=== PATIENT | male | born 1955 | race Caucasian/White ===

== ENCOUNTER 2016-07-05 07:09 | Outpatient (CLI) | payer OTHER | END 2016-07-05 07:10 | disposition home or self-care (01) | DX: E11.9 Type 2 diabetes mellitus without complications (principal) ==

== ENCOUNTER 2016-07-22 08:33 | Outpatient (CLI) | payer OTHER | END 2016-07-22 08:34 | disposition home or self-care (01) | LOC: NS 08:33 | PROVIDERS: ATTEND Family Medicine | DX: Z71.3 Dietary counseling and surveillance (principal); E11.9 Type 2 diabetes mellitus without complications; Z68.32 Body mass index [BMI] 32.0-32.9, adult | CPT/HCPCS: 97802 ==

== ENCOUNTER 2017-07-21 08:00 | Outpatient (CLI) | payer OTHER ==
[2017-07-21 13:52] LABS: ALBUMIN 4.2 g/dL (3.2-5.5); ALBUMIN/GLOBULIN RATIO 1.6 (1.0-2.2); ALKALINE PHOSPHATASE 67 IU/L (42-121); ALT ALANINE AMINOTRANSFERASE 28 IU/L (10-60); AST ASPARTATE AMINOTRANSFERASE 24 IU/L (10-42); BILIRUBIN,TOTAL 1.5 mg/dL (0.2-1.0); BUN - BLOOD UREA NITROGEN 17 mg/dL (6-20); CALCIUM 8.7 mg/dL (8.5-10.3); CARBON DIOXIDE - CO2 25 mmol/L (21-32); CHLORIDE 104 mmol/L (101-111); CHOLESTEROL 145 mg/dL; CREATININE 0.8 mg/dL (0.6-1.2); GFR - MDRD 98 (>89); GLUCOSE 149 mg/dL (70-100); HDL CHOLESTEROL 36 mg/dL; LDL CHOLESTEROL,CALCULATED 73 mg/dL; SODIUM 136 mmol/L (135-145); TOTAL PROTEIN 6.9 g/dL (6.7-8.2); URIC ACID 5.1 mg/dL (2.6-7.2); VLDL CHOLESTEROL 36 mg/dL
[2017-07-21 14:23] LABS: HB2 TOTAL 17.2 g/dL; HEMOGLOBIN A1C 0.66 g/dL; HEMOGLOBIN A1C % 5.7 % (4.6-6.2)
== END 2017-07-21 08:01 | disposition home or self-care (01) ==
LOC: LAB.WCP 08:00
PROVIDERS: ATTEND Family Medicine
DX: E78.5 Hyperlipidemia, unspecified (principal); E11.9 Type 2 diabetes mellitus without complications; Z12.5 Encounter for screening for malignant neoplasm of prostate; M10.9 Gout, unspecified
CPT/HCPCS: 36415; 80053; 80061; 82043; 83036; 83721; 84153; 84550

== ENCOUNTER 2017-08-04 06:54 | Outpatient (CLI) | payer OTHER ==
[2017-08-04] MEDS ORDERED: IOPAMIDOL-300 100 ML VIAL ONE (07:20)
[2017-08-04] MEDS ORDERED: IOPAMIDOL-300 100 ML VIAL IVP ONE (07:36)
--- NOTE | 2017-08-04 14:42 | CT Report ---
EXAM: CT LUMBAR SPINE WITH CONTRAST EXAM DATE: 08/04/2017 07:36 AM. CLINICAL HISTORY: Lumbar radiculopathy. Low back pain. Prior lumbar spine surgery. COMPARISONS: No prior contrast-enhanced lumbar spine CT. Correlation is made with lumbar spine CT per formed simultaneously with this lumbar spine CT with contrast. TECHNIQUE: Thin-section axial images were acquired of the lumbar spine from T12 to S1 after administr ation of intravenous contrast. Post-processing: Coronal and sagittal reformats. Other: None. IV contr ast: 100 mL Isovue-300. In accordance with CT protocol optimization, one or more of the following dose reduction techniques w ere utilized for this exam: automated exposure control, adjustment of mA and/or KV based on patient s ize, or use of iterative reconstructive technique. FINDINGS: No evidence for abnormal postcontrast enhancement of the lumbar spine. No evidence for peripherally e nhancing abscess-like fluid collection or focal solid space occupying mass. Note that soft tissue trey luation even with contrast adjacent to and within the lumbar spinal column is inherently limited. No other evidence for unexpected paraspinal soft tissue enhancement. The remaining details of lumbar spine CT findings can be seen in the detailed report of the lumbar sp ine performed with contrast which was scanned simultaneously with this contrast-enhanced study. IMPRESSION: No evidence for abnormal or an expected postcontrast enhancement. If there is additional concern for enhancing lumbar spine pathology, MRI of the lumbar spine without and with contrast is ge nerally considered to be preferred to CT assuming the patient is an MRI candidate. [facility] Referring Provider Line: [phone] SITE ID: [id number]
--- NOTE | 2017-08-04 14:42 | CT Report ---
EXAM: CT LUMBAR SPINE WITHOUT CONTRAST EXAM DATE: 08/04/2017 07:24 AM. CLINICAL HISTORY: Lumbar radiculopathy. History of lumbar spine surgery. COMPARISONS: No prior CT. Correlation is made with MRI of the lumbar spine from 08/31/2015. TECHNIQUE: Thin-section axial images were acquired of the lumbar spine from T12 to S1 without contras t. Post-processing: Coronal and sagittal reformats. Other: None. In accordance with CT protocol optimization, one or more of the following dose reduction techniques w ere utilized for this exam: automated exposure control, adjustment of mA and/or KV based on patient s ize, or use of iterative reconstructive technique. FINDINGS: Alignment: Approximately 15 degrees of levoscoliosis, similar to prior. Sagittal images show lumbar l ordosis straightening and upper lumbar lordosis reversal. Bones: Five ymq-rsn-afnhptw lumbar vertebral bodies are present. No acute fracture. Diffuse degenerat chang marginal spurring and chronic hypertrophic degenerative changes. Ferc-cr-ttnesvzw bilateral SI elsa int DJD with anterior marginal spurring. Coronal images show bulky osteophytic far right lateral spurring versus syndesmophyte formation acros s the L3-L4 disk space which also shows solid bony fusion laterally on the right. Disk Levels/Facets: T12-L1: Mild chronic degenerative changes. No evidence for progressive or high-grade stenosis. L1-L2: Moderately prominent degenerative disk disease. Anterior and far left lateral degenerative mar ginal spurring. Diffusely narrowed disk space. Chronic L2 superior endplate Schmorl's node. Mild righ tward lateral degenerative subluxation of L1 on L2. Mild facet arthropathy. Broad-based disk bulge. M inimal central stenosis. Mild bilateral foraminal stenosis right greater than left. L2-L3: Moderate to severe degenerative disk disease. Marked disk space narrowing with vacuum disk. De generative Schmorl's nodes on both sides of the disk space. Mild marginal spurring. Broad-based disk bulge. Mild facet arthropathy. No significant foraminal stenosis. Mild grossly stable central stenosi s. L3-L4: Chronic advanced hypertrophic degenerative changes. Previous left hemilaminotomy decompression . The osseous contours of the central canal are grossly maintained. Stable-appearing bony stenosis of the right lateral recess and both neural foramina, right greater than left. The L3 and L4 vertebrae appear fused at the level of the right lateral disk space and both facet joints also show bony fusion . L4-L5: Severe degenerative disk disease. Ctyq-op-caugsgbr facet arthropathy. Vacuum disk. Marginal sp urring and diskogenic sclerosis. Again seen are findings of a chronic broad-based posterior degenerat chang disk/osteophyte complex that is more conspicuous to the right of midline. The central canal remai ns patent. Previous dorsal laminectomy decompression. There is residual deformity and stenosis of bot h lateral recesses, right worse than left, from a combination of hypertrophic degenerative changes of the facet joints as well as posterior degenerative marginal spurring with disk protrusion, more prom inent to the right of midline. Again seen are findings of prominent foraminal stenosis, severe on the left and at least moderate on the right. L5-S1: There are now findings of dorsal laminectomy decompression, diskectomy with interbody fusion h ardware placement, and posterior unilateral left side ashu and screw fusion procedure. Minimal lucency is seen around the left S1 unilateral pedicle screw which may be secondary to minimal hardware loose minoo but without evidence for screw migration. No bony disk space fusion. The interbody fusion hardwa re has settled into the adjacent endplates. Small vacuum phenomenon at the far right lateral margin o f the disk space between lateral osteophytes and also in the left lateral disk space. The osseous con tours of the central canal are grossly maintained, but there is persistent prominent-appearing right lateral recess stenosis where there is impingement from prominent right-side facet joint hypertrophic degenerative changes and spurring medially. The left lateral recess appears patent. The left neural foramen is now patent and appears to have been surgically decompressed. There is moderate to severe d egenerative foraminal stenosis on the right from facet hypertrophy, marginal spurring and intraforami nal extension of broad-based disk bulge. Musculature: Rbgf-gz-qxpngzvl diffuse fatty atrophy. Expected fat plane disruption from prior surgery . Other: None. IMPRESSION: 1. No significant change of alignment. Mild lumbar levoscoliosis is present as well as lordosis strai ghtening and mild upper lumbar lordosis reversal. 2. Interval dorsal decompressions and fusions at the L5-S1 level. The intervertebral disk space is no t fused. Equivocal findings of minimal left S1 screw loosening. There is persistent stenosis at L5-S1 of the right lateral recess and neural foramen. 3. Chronic advanced multilevel degenerative lumbar spinal spondylitic changes with multizone multilev el stenosis, as enumerated in detail level by level above. 4. Interval probable degenerative autofusion of the L3-L4 vertebrae. [facility] Referring Provider Line: [phone] SITE ID: [id number]
== END 2017-08-04 06:55 | disposition home or self-care (01) ==
LOC: DI 06:54
PROVIDERS: ATTEND Family Medicine
DX: M51.16 Intervertebral disc disorders with radiculopathy, lumbar region (principal); M41.86 Other forms of scoliosis, lumbar region; Z98.1 Arthrodesis status
CPT/HCPCS: 72131; 72132; Q9967

== ENCOUNTER 2018-04-13 08:00 | Outpatient (CLI) | payer OTHER ==
[2018-04-13 19:46] LABS: ALBUMIN 4.1 g/dL (3.2-5.5); ALBUMIN/GLOBULIN RATIO 1.4 (1.0-2.2); BILIRUBIN,TOTAL 0.7 mg/dL (0.2-1.0); CALCIUM 9.1 mg/dL (8.5-10.3); CREATININE 0.8 mg/dL (0.6-1.2); TOTAL PROTEIN 7.1 g/dL (6.7-8.2)
[2018-04-13 20:22] LABS: HB2 TOTAL 16.2 g/dL; HEMOGLOBIN A1C 0.69 g/dL
== END 2018-04-13 23:59 | disposition home or self-care (01) ==
LOC: LAB.WCP 08:00
PROVIDERS: ATTEND Family Medicine
DX: E78.5 Hyperlipidemia, unspecified (principal); E11.9 Type 2 diabetes mellitus without complications; M54.16 Radiculopathy, lumbar region; M10.9 Gout, unspecified
CPT/HCPCS: 36415; 80053; 83036

== ENCOUNTER 2018-05-03 07:29 | Outpatient (CLI) | payer OTHER ==
[2018-05-03] MEDS ORDERED: GADOBUTROL 10 MMOL/10 ML VIAL ONE (07:41)
[2018-05-03] MEDS ORDERED: GADOBUTROL 10 MMOL/10 ML VIAL IVP ONE (08:20)
--- NOTE | 2018-05-03 16:33 | MRI Report ---
Reason: SPINAL STENOSIS,LUMBAR REGION WITH NEUROGENIC ELISABET Procedure Date: 05/03/2018 Accession Number: [id number] / [id number] Procedure: MRI - Lumbar Spine W/WO CPT Code: FULL RESULT: MRI LUMBAR SPINE WITHOUT AND WITH CONTRAST INDICATION: 62-year-old male. Low back pain and right leg pain and weakness. TECHNIQUE: 1. Sagittal STIR, T1 and T2. 2. Axial T1 and T2. 3. 10 cc IV Gadavist. T1 axial and fat saturated T1 sagittal. COMPARISON: 1. Lumbar spine CT 08/04/2017 and 2. Lumbar spine MRI 08/31/2015. FINDINGS: The previous CT study has been reviewed confirming the presence of 5 tlx-gdj-onvcqsd lumbar type vertebrae. Postsurgical changes are again demonstrated at L5-S1. There is evidence of previous diskectomy and interbody fusion surgery. An interbody fusion device is again demonstrated positioned within the left side of the disk space. There is no obvious trabecular bone traversing the disk space at this time to confirm the presence of solid interbody fusion. Also again noted are changes of previous unilateral instrumented posterior fusion at L5-S1 with left-sided L5 and S1 pedicle screws and an interconnecting ashu. There is some magnetic susceptibility artifact from the posterior fusion hardware; however, this does not appear to be causing significant image degradation. Again demonstrated is a levoconvex scoliosis with apex at the L3-L4 disk level. With the patient lying supine, the Lynch angle appears to measure 20 degrees. In the sagittal plane, again demonstrated is straightening of the lumbar alignment with very minimal lumbar lordosis. In addition, again demonstrated is mild retrolisthesis of L2 on L3 and L4 on L5 measuring roughly 3-4 mm at both levels. Again demonstrated is minimal anterior wedging of the T11, T12, L1 and L2 vertebral bodies, unchanged. The vertebral body heights are otherwise preserved. No evidence of recent lumbar spine compression fracture. Degenerative changes are demonstrated in the disks at all levels. There is a similar pattern of multilevel degenerative disk space narrowing that is most pronounced and relatively severe at L3-L4 (laterally to the right) and at L4-L5. Type II reactive marrow changes are identified in the vertebral endplates at L3-L4, L4-L5 and L5-S1. Numerous, smaller, T1/T2 hyperintense foci are demonstrated, scattered throughout the vertebrae consistent with inhomogeneous fatty marrow replacement and/or multiple intraosseous hemangiomata. The marrow signal intensity is otherwise unremarkable. The conus terminates in appropriate fashion above the L1-L2 disk level. There is no abnormal thickening or lipomatous change of the filum. Axial images: T12-L1: No focal disk herniation. No spinal stenosis. Mild left foraminal stenosis. L1-L2: Minor, circumferential disk bulge. Superimposed small extrusion posterior laterally on the right, contiguous with the small right intraforaminal/extraforaminal extrusion, essentially unchanged. Small left intraforaminal/extraforaminal protrusion or extrusion, stable. There is mass effect on the ventral aspect of the thecal sac without significant-appearing spinal stenosis. There is mild to moderate right foraminal stenosis. No left foraminal narrowing. L2-L3: Circumferential disk bulge. Small intraforaminal/extraforaminal protrusions bilaterally, unchanged. No significant-appearing spinal stenosis. Mild right-sided foraminal narrowing. L3-L4: There is evidence of previous left hemilaminotomy. The surgery has occurred since the MRI study of 08/31/2015. The left ligamentum flavum and the intralaminar fat pad have been surgically removed. Again demonstrated is a broad-based, right intraforaminal/extraforaminal extrusion with associated osteophyte, unchanged. Laterally on the right, the prominent osteophyte is bridging the L3-L4 level. There is a smaller left intraforaminal/extraforaminal extrusion, essentially unchanged. There continues to be some right subarticular zone narrowing. No loyd impingement of traversing right L4 nerve root is demonstrated. No central zone or left subarticular zone stenosis. There is mild to moderate left and moderate right foraminal stenosis, unchanged. L4-L5: Postsurgical changes are again demonstrated with evidence of previous bilateral laminectomy. Retrolisthesis. Broad-based left intraforaminal/extraforaminal extrusion, essentially unchanged. There has been interval development of a small right paracentral extrusion with caudal migration of extruded disk material in the ventral epidural space along the dorsal margin of the upper L5 vertebral body for roughly 7.6 mm in the craniocaudad direction. This inferiorly migrated disk fragment measures about 6 mm in maximal AP thickness. There is a broad-based right intraforaminal/extraforaminal extrusion with minor associated intraforaminal osteophyte, stable. Degenerative facet arthrosis with at least mild bony hypertrophy. There are bilateral subarticular zone stenoses showing definite interval progression on the right. There certainly could be compromise of traversing L5 nerve roots. Again demonstrated is very severe, left foraminal stenosis, unchanged with almost certain compromise of exiting left L4 nerve root. There is moderate right foraminal stenosis, stable. L5-S1: There is deformity of the right lamina suggesting interval right hemilaminotomy. Retrolisthesis. Small right posterior lateral and intraforaminal/extraforaminal extrusion and mild interval increase in size. Previously demonstrated small left-sided extrusion is no longer seen. There is persistent right subarticular zone narrowing, primarily from facet hypertrophy. No definite compromise of traversing right S1 nerve root. No central zone or left subarticular zone narrowing. There is at least moderate foraminal narrowing bilaterally. Previously demonstrated cystic mass in the left neural foramen is no longer seen, and no obvious compromise of exiting left L5 nerve root is demonstrated at this time. However, there may be impingement of the right L5 nerve root in the lateral aspect of the neural foramen (see image 16 of series 301). Intraforaminal extrusion contacts the nerve root, and perineural fat surrounding the nerve root is partially effaced. On postcontrast sequences, no significant enhancing epidural granulation tissue is identified at L3-L4 or L4-L5. There is enhancing granulation tissue in the left epidural space at L5-S1 surrounding the dural sleeve for traversing left S1 nerve root. However, no significant distortion or retraction of the nerve root sleeve is demonstrated. No pathologic enhancement is demonstrated in the lumbar spine. No obvious abnormal clumping of intradural nerve roots is demonstrated to confirm the presence of intradural adhesive arachnoiditis. IMPRESSION: 1. Postsurgical changes are demonstrated at L5-S1, new when compared to the MRI study of 08/31/2015 but stable when compared to lumbar spine CT 08/04/2017. There is evidence of prior L5-S1 diskectomy and interbody fusion surgery. An interbody fusion device is demonstrated in place. No obvious trabecular bone is seen traversing the disk space at this time to confirm solid interbody fusion. Also demonstrated are changes of previous lateral left-sided instrumented posterior fusion at L5-S1 (see above). 2. There is evidence of interval left hemilaminotomy at L3-L4 and interval right hemilaminotomy at L5-S1. Remote changes of previous bilateral laminectomy again noted at L4-L5. 3. Degenerative disk and facet changes are seen throughout the lumbar spine as documented in detail above. There are associated central, subarticular, and foraminal zone stenoses. The most significant stenoses are as follows: A. At L4-L5 there is a new inferiorly migrated right paracentral extrusion. There continues to be significant subarticular zone narrowing bilaterally. There has been interval worsening of pre-existing right subarticular zone stenosis. There certainly could be compromise of traversing L5 nerve roots at L4-L5. Recommend clinical correlation for possible right L5 radiculopathy. B. Again demonstrated is very severe left foraminal stenosis at L4-L5 with almost certain compromise of exiting left L4 nerve root, unchanged when compared to the MRI study from 08/2015. C. There is persistent right subarticular zone stenosis at L5-S1; however, no definite compromise of traversing right S1 nerve root is demonstrated. D. There is potentially significant right foraminal stenosis at L5-S1. There may be impingement of the right L5 nerve root in the lateral aspect of the foramen.
== END 2018-05-03 07:30 | disposition home or self-care (01) ==
LOC: DI 07:29
PROVIDERS: ATTEND Orthopaedic Surgery
DX: M48.062 Spinal stenosis, lumbar region with neurogenic claudication (principal); M51.36 Other intervertebral disc degeneration, lumbar region; M47.9 Spondylosis, unspecified; M51.26 Other intervertebral disc displacement, lumbar region; Z98.1 Arthrodesis status; M48.07 Spinal stenosis, lumbosacral region
CPT/HCPCS: 72158; A9585

== ENCOUNTER 2018-09-14 09:33 | Outpatient (CLI) | payer OTHER ==
[2018-09-14 12:52] LABS: BASOPHILS % (AUTO) 0.6 %; EOSINOPHILS # (AUTO) 0.2 10^3/uL (0.0-0.7); EOSINOPHILS % (AUTO) 2.6 %; LYMPHOCYTES # (AUTO) 1.5 10^3/uL (1.5-3.5); MEAN CORPUSCULAR HEMOGLOBIN 32.4 pg (27.0-31.0); MEAN CORPUSCULAR HGB CONC 34.9 g/dL (32.0-36.0); MEAN CORPUSCULAR VOLUME 92.9 fL (80.0-94.0); MEAN PLATELET VOLUME 11.2 fL (7.4-11.4); MONOCYTES # (AUTO) 0.5 10^3/uL (0.0-1.0); MONOCYTES % (AUTO) 7.7 %; NEUTROPHILS % (AUTO) 64.3 %; PLT - PLATELET COUNT 206 10^3/uL (130-450); RED BLOOD COUNT 4.63 10^6/uL (4.70-6.10); RED CELL DISTRIBUTION WIDTH 13.4 % (12.0-15.0); WHITE BLOOD COUNT 6.2 x10^3/uL (4.8-10.8)
[2018-09-14 13:16] LABS: ALBUMIN 4.3 g/dL (3.2-5.5); ALBUMIN/GLOBULIN RATIO 1.4 (1.0-2.2); ALKALINE PHOSPHATASE 82 IU/L (42-121); ALT ALANINE AMINOTRANSFERASE 35 IU/L (10-60); AST ASPARTATE AMINOTRANSFERASE 24 IU/L (10-42); BILIRUBIN,TOTAL 1.3 mg/dL (0.2-1.0); BUN - BLOOD UREA NITROGEN 16 mg/dL (6-20); CALCIUM 9.1 mg/dL (8.5-10.3); CARBON DIOXIDE - CO2 24 mmol/L (21-32); CHLORIDE 105 mmol/L (101-111); CHOL/HDL RATIO 4.1 (<5.0); CHOLESTEROL 160 mg/dL; CREATININE 0.8 mg/dL (0.6-1.2); GFR - MDRD 97 (>89); GLUCOSE 158 mg/dL (70-100); HDL CHOLESTEROL 39 mg/dL; LDL CHOLESTEROL,CALCULATED 96 mg/dL; LDL/HDL RATIO 2.5 (<3.6); SODIUM 138 mmol/L (135-145); TOTAL PROTEIN 7.3 g/dL (6.7-8.2); VLDL CHOLESTEROL 25 mg/dL
[2018-09-14 13:17] LABS: CREATININE,URINE 104.4 mg/dL; MICROALBUM/CREATININE RATIO,UR 13.4 ug/mg (<30.0); MICROALBUMIN,URINE 1.4 mg/dL (0-300.0)
[2018-09-14 13:18] LABS: HB2 TOTAL 17.1 g/dL; HEMOGLOBIN A1C 0.87 g/dL; HEMOGLOBIN A1C % 6.8 % (4.6-6.2)
== END 2018-09-14 09:34 | disposition home or self-care (01) ==
LOC: LAB.WCP 09:33
PROVIDERS: ATTEND Family Medicine
DX: I10 Essential (primary) hypertension (principal); E78.5 Hyperlipidemia, unspecified; E11.9 Type 2 diabetes mellitus without complications; Z12.5 Encounter for screening for malignant neoplasm of prostate
CPT/HCPCS: 36415; 80053; 80061; 82043; 82570; 83036; 83721; 84153; 84443; 85025

== ENCOUNTER 2019-08-21 08:00 | Outpatient (CLI) | payer BC, OTHER ==
[2019-08-21 18:33] LABS: BASOPHILS # (AUTO) 0.1 10^3/uL (0.0-0.1); BASOPHILS % (AUTO) 0.7 %; EOSINOPHILS # (AUTO) 0.1 10^3/uL (0.0-0.7); EOSINOPHILS % (AUTO) 1.8 %; HGB - HEMOGLOBIN 15.6 g/dL (14.0-18.0); LYMPHOCYTES # (AUTO) 2.1 10^3/uL (1.5-3.5); LYMPHOCYTES % (AUTO) 28.7 %; MEAN CORPUSCULAR HEMOGLOBIN 32.6 pg (27.0-31.0); MEAN CORPUSCULAR HGB CONC 35.8 g/dL (32.0-36.0); MEAN PLATELET VOLUME 11.3 fL (7.4-11.4); MONOCYTES # (AUTO) 0.6 10^3/uL (0.0-1.0); MONOCYTES % (AUTO) 7.6 %; NEUTROPHILS # (AUTO) 4.5 10^3/uL (1.5-6.6); NEUTROPHILS % (AUTO) 60.5 %; PLT - PLATELET COUNT 211 10^3/uL (130-450); RED BLOOD COUNT 4.79 10^6/uL (4.70-6.10); RED CELL DISTRIBUTION WIDTH 12.8 % (12.0-15.0); WHITE BLOOD COUNT 7.4 x10^3/uL (4.8-10.8)
[2019-08-21 18:45] LABS: ALBUMIN 4.3 g/dL (3.2-5.5); ALBUMIN/GLOBULIN RATIO 1.5 (1.0-2.2); ALKALINE PHOSPHATASE 119 IU/L (42-121); ALT ALANINE AMINOTRANSFERASE 18 IU/L (10-60); AST ASPARTATE AMINOTRANSFERASE 14 IU/L (10-42); BILIRUBIN,TOTAL 1.7 mg/dL (0.2-1.0); BUN - BLOOD UREA NITROGEN 12 mg/dL (6-20); CALCIUM 9.3 mg/dL (8.5-10.3); CARBON DIOXIDE - CO2 29 mmol/L (21-32); CHLORIDE 96 mmol/L (101-111); CHOL/HDL RATIO 4.4 (<5.0); CHOLESTEROL 175 mg/dL; CREATININE 0.7 mg/dL (0.6-1.2); GLUCOSE 278 mg/dL (70-100); HDL CHOLESTEROL 40 mg/dL; LDL CHOLESTEROL,CALCULATED 104 mg/dL; LDL/HDL RATIO 2.6 (<3.6); SODIUM 133 mmol/L (135-145); TOTAL PROTEIN 7.2 g/dL (6.7-8.2); VLDL CHOLESTEROL 31 mg/dL
[2019-08-21 18:48] LABS: CREATININE,URINE 80.7 mg/dL; MICROALBUM/CREATININE RATIO,UR 9.9 ug/mg (<30.0); MICROALBUMIN,URINE 0.8 mg/dL (0-300.0)
[2019-08-21 18:59] LABS: HB2 TOTAL 16.3 g/dL; HEMOGLOBIN A1C 1.8 g/dL; HEMOGLOBIN A1C % 12.3 % (4.6-6.2)
== END 2019-08-21 23:59 | disposition home or self-care (01) ==
LOC: LAB.WCP 08:00
PROVIDERS: ATTEND Family Medicine
DX: Z00.00 Encounter for general adult medical examination without abnormal findings (principal); E78.5 Hyperlipidemia, unspecified; N40.0 Benign prostatic hyperplasia without lower urinary tract symptoms
CPT/HCPCS: 36415; 80053; 80061; 82043; 82570; 83036; 83721; 84153; 84443; 85025

== ENCOUNTER → 2019-12-06 | Outpatient (CLI) | payer BC ==
[2019-12-06 19:00] LABS: CALCIUM 9.2 mg/dL (8.5-10.3); CREATININE 0.9 mg/dL (0.6-1.2)
[2019-12-06 21:10] LABS: HEMOGLOBIN A1c% 5.7 % (4.27-6.07)
== END ==
LOC: LAB.WCP 08:00
PROVIDERS: ATTEND Nurse Practitioner
DX: E11.9 Type 2 diabetes mellitus without complications (principal)
CPT/HCPCS: 36415; 80048; 83036

== ENCOUNTER 2020-02-19 08:00 | Outpatient (CLI) | payer BC ==
[2020-02-19 13:19] LABS: CALCIUM 9.4 mg/dL (8.5-10.3); CREATININE 0.8 mg/dL (0.6-1.2)
[2020-02-19 14:04] LABS: HEMOGLOBIN A1c% 5.5 % (4.27-6.07)
== END 2020-02-19 08:01 | disposition home or self-care (01) ==
LOC: LAB.WCP 08:00
PROVIDERS: ATTEND Nurse Practitioner
DX: E11.9 Type 2 diabetes mellitus without complications (principal)
CPT/HCPCS: 36415; 80048; 83036

== ENCOUNTER 2020-08-19 08:00 | Outpatient (CLI) | payer BC ==
[2020-08-19 12:21] LABS: CALCIUM 9.2 mg/dL (8.5-10.3); CREATININE 0.8 mg/dL (0.6-1.2); POTASSIUM 3.8 mmol/L (3.5-5.0)
[2020-08-19 12:35] LABS: ESTIMATED AVERAGE GLUCOSE 128 mg/dL (70-100); HEMOGLOBIN A1c% 6.1 % (4.27-6.07)
== END 2020-08-19 23:59 | disposition home or self-care (01) ==
LOC: LAB.WCP 08:00
PROVIDERS: ATTEND Family Medicine
DX: E11.9 Type 2 diabetes mellitus without complications (principal)
CPT/HCPCS: 36415; 80048; 83036

== ENCOUNTER 2020-09-24 08:05 | Outpatient (CLI) | payer BC ==
--- NOTE | 2020-09-24 11:37 | XRAY Report ---
PROCEDURE: Pelvis 3 View INDICATIONS: ARTHRITIS, HIPS BILATERAL TECHNIQUE: AP view of the pelvis and frog-leg lateral views of each hip. COMPARISON: Bilateral hip radiographs 05/01/2015 FINDINGS: There is no acute fracture or dislocation. Mild degenerative spurring is seen at the lateral acetabul ar angles bilaterally. Mild enthesopathy is seen throughout the pelvis. Post surgical changes are see n in the included lower lumbar spine with pedicle screws and interbody rods on the left at the L5-S1 level and interbody spacer present. Degenerative changes are noted in the lumbar spine. Bowel gas pattern within pelvis is within normal limits. No suspicious soft tissue calcification. IMPRESSION: No acute osseous abnormality. Symmetric mild to moderate osteoarthrosis of the hips bilaterally. Reviewed by: Jeff Palmer MD on 09/24/2020 11:35 AM PDT Approved by: Jeff Palmer MD on 09/24/2020 11:35 AM PDT Station ID: [id number]
== END 2020-09-24 08:06 | disposition home or self-care (01) ==
LOC: DI.N 08:05
PROVIDERS: ATTEND Family Medicine
DX: M16.0 Bilateral primary osteoarthritis of hip (principal)

== ENCOUNTER 2021-05-13 07:09 | Outpatient (CLI) | payer OTHER ==
[2021-05-13 08:41] LABS: BASOPHILS # (AUTO) 0.1 10^3/uL (0.0-0.1); BASOPHILS % (AUTO) 0.9 %; EOSINOPHILS # (AUTO) 0.2 10^3/uL (0.0-0.7); EOSINOPHILS % (AUTO) 2.8 %; HCT - HEMATOCRIT 44.5 % (42.0-52.0); HGB - HEMOGLOBIN 15.5 g/dL (14.0-18.0); LYMPHOCYTES # (AUTO) 1.5 10^3/uL (1.5-3.5); LYMPHOCYTES % (AUTO) 21.7 %; MEAN CORPUSCULAR HGB CONC 34.8 g/dL (32.0-36.0); MEAN CORPUSCULAR VOLUME 91.9 fL (80.0-94.0); MEAN PLATELET VOLUME 10.3 fL (7.4-11.4); MONOCYTES # (AUTO) 0.6 10^3/uL (0.0-1.0); MONOCYTES % (AUTO) 9.5 %; NEUTROPHILS # (AUTO) 4.4 10^3/uL (1.5-6.6); NEUTROPHILS % (AUTO) 64.5 %; PLT - PLATELET COUNT 191 10^3/uL (130-450); RED BLOOD COUNT 4.84 10^6/uL (4.70-6.10); RED CELL DISTRIBUTION WIDTH 12.7 % (12.0-15.0); WHITE BLOOD COUNT 6.8 x10^3/uL (4.8-10.8)
[2021-05-13 08:52] LABS: MICROALBUM/CREATININE RATIO,UR 3.9 ug/mg (<30.0); MICROALBUMIN,URINE 0.5 mg/dL (0-300.0)
[2021-05-13 08:54] LABS: ALBUMIN 4.4 g/dL (3.2-5.5); ALBUMIN/GLOBULIN RATIO 1.5 (1.0-2.2); ALKALINE PHOSPHATASE 83 IU/L (42-121); ALT ALANINE AMINOTRANSFERASE 24 IU/L (10-60); AST ASPARTATE AMINOTRANSFERASE 17 IU/L (10-42); BILIRUBIN,TOTAL 1.1 mg/dL (0.2-1.0); BUN - BLOOD UREA NITROGEN 15 mg/dL (6-20); CALCIUM 9.3 mg/dL (8.5-10.3); CARBON DIOXIDE - CO2 28 mmol/L (21-32); CHLORIDE 102 mmol/L (101-111); CHOL/HDL RATIO 4.1 (<5.0); CHOLESTEROL 175 mg/dL; CREATININE 0.8 mg/dL (0.6-1.2); GFR - MDRD 97 (>89); GLUCOSE 167 mg/dL (70-100); HDL CHOLESTEROL 43 mg/dL; LDL CHOLESTEROL,CALCULATED 110 mg/dL; LDL/HDL RATIO 2.6 (<3.6); POTASSIUM 4.5 mmol/L (3.5-5.0); SODIUM 137 mmol/L (135-145); TOTAL PROTEIN 7.3 g/dL (6.7-8.2); TRIGLYCERIDES 111 mg/dL; VLDL CHOLESTEROL 22 mg/dL
[2021-05-13 13:03] LABS: ESTIMATED AVERAGE GLUCOSE 140 mg/dL (70-100); HEMOGLOBIN A1c% 6.5 % (4.27-6.07)
== END 2021-05-13 07:10 | disposition home or self-care (01) ==
LOC: LAB 07:09
PROVIDERS: ATTEND Family Medicine
DX: E11.9 Type 2 diabetes mellitus without complications (principal); Z12.5 Encounter for screening for malignant neoplasm of prostate
CPT/HCPCS: 36415; 80053; 80061; 82043; 82570; 83036; 83721; 84153; 85025

== ENCOUNTER 2021-08-05 06:47 | Outpatient (CLI) | payer OTHER ==
[2021-08-05 07:07] LABS: CREATININE 0.9 mg/dL (0.6-1.2)
== END 2021-08-05 06:48 | disposition home or self-care (01) ==
LOC: LAB 06:47
PROVIDERS: ATTEND Orthopaedic Surgery Foot and Ankle Surgery
DX: M54.16 Radiculopathy, lumbar region (principal)
CPT/HCPCS: 36415; 82565; 84520

== ENCOUNTER 2023-04-03 11:21 | Emergency (ER) | payer MEDICARE, OTHER ==
--- NOTE | 2023-04-03 12:04 | ED Physician Documentation ---
PD HPI UPPER EXT INJURY - Stated complaint Stated Complaint: RT FINGER LAC - Chief complaint Chief Complaint: Laceration - History obtained from History obtained from: Patient - History of Present Illness Location: Right, Finger (3rd) Pain level max: 3 Pain level now: 3 Associated symptoms: No: Weakness, Numbness, Tingling, Swelling - Additonal information Additional information: Patient is a 67-year-old male who presents to the emergency department for laceration to the tip of the right third finger. This was cut on a fan when he was opening of fluid on a jeep. Tetanus is up-to-date. Patient is right- handed. He is diabetic. Better with pressure, nothing makes it worse. PD PAST MEDICAL HISTORY - Past Medical History Past Medical History: Yes Cardiovascular: Hypertension, High cholesterol Respiratory: None Endocrine/Autoimmune: Type 2 diabetes GI: None : None HEENT: None Psych: None Musculoskeletal: Gout, Other Derm: None - Past Surgical History Past Surgical History: Yes General: Colonoscopy Ortho: Spine surgery - Present Medications Home Medications: Ambulatory Orders Medication Instructions Recorded Confirmed allopurinoL [Allopurinol] 300 mg PO DAILY 07/08/13 04/03/23 Insulin Glargine,Hum.rec.anlog 22 unit SUBQ DAILY 10/29/19 04/03/23 [Basaglar Kwikpen U-100] Metformin HCl [Metformin HCl ER] 1,000 mg PO DAILY 10/29/19 04/03/23 Cyclobenzaprine [Flexeril] 10 mg PO TID PRN 10/30/19 04/03/23 cephALEXin [Keflex] 500 mg PO Q6H #28 cap 04/03/23 - Allergies Allergies/Adverse Reactions: Allergies Allergy/AdvReac Type Severity Reaction Status Date / Time No Known Drug Allergies Allergy Verified 04/03/23 11:27 - Social History Does the pt smoke?: No Smoking Status: Never smoker Does the pt drink ETOH?: No Does the pt have substance abuse?: No - Immunizations Immunizations: TDAP >10years/unknown - POLST Patient has POLST: No PD ED PE NORMAL - Vitals Vital signs reviewed: Yes - General General: Alert and oriented X 3, No acute distress - HEENT HEENT: Moist mucous membranes - Derm Derm: Warm and dry - Extremities Extremities: Other (Right hand - Small flap laceration at the tip of the 3rd finger. No nail involvement. No bony exposure. Neurovascular intact.) - Neuro Neuro: Alert and oriented X 3 - Psych Psych: Normal mood, Normal affect Results - Vitals Vitals: Vital Signs - 24 hr 04/03/23 11:24 Temperature 36.7 C Heart Rate 66 Respiratory 20 Rate Blood Pressure 182/88 H O2 Saturation 98 Oxygen O2 Source Room air Procedures - Laceration (location) Right third finger Length in cm: 1.4 Wound type: Curved, Flap, Into subcut fat, Clean Neurovascular status: Sensory intact, Motor intact, Vascular intact Tendon involvement: Tendon intact Wound preparation: Irrigated copiously NS, Wound explored, To the base Skin layer closure: Dermabond Other: Patient tolerated well, No complications, Neurovascular intact, Dressing applied (Finger splint), Tetanus UTD PD Medical Decision Making - ED course Complexity details: considered differential, d/w patient ED course: Laceration repaired with Dermabond. Tolerated well. No complications. Wound care instructions given at bedside. Patient is diabetic and this was a dirty wound, therefore Keflex will be prescribed. Patient counseled regarding signs and symptoms for which I believe and urgent re-evaluation would be necessary. Patient with good understanding of and agreement to plan and is comfortable going home at this time This document was made in part using voice recognition software. While efforts are made to proofread this document, sound alike and grammatical errors may occur. Departure - Departure Disposition: 01 Home, Self Care Clinical Impression: Finger laceration Qualifiers: Encounter type: initial encounter Finger: middle finger Damage to nail status: without damage Foreign body presence: without foreign body Laterality: right Qualified Code(s): S61.212A - Laceration without foreign body of right middle finger without damage to nail, initial encounter Condition: Good Instructions: ED Laceration Hand Follow-Up: your,doctor in 1 week for wound check [Other] Prescriptions: cephALEXin [Keflex] 500 mg PO Q6H #28 cap Comments: Your prescriptions were sent to [facility] in [place]. Please follow-up with your doctor for further care. I think we will follow-up its own in several days. He can use the splint to help protect the area. As you are diabetic, we will start you on antibiotics. Please return if you notice redness, swelling or drainage from the wound. There may be slight oozing from the wound still today. Do not apply any ointments to the area as this will dissolve the glue.
[2023-04-03 12:15] VITALS: BP 159/88; O2SAT 99
== END 2023-04-03 12:09 | disposition home or self-care (01) ==
LOC: ED 11:21
DX: S61.212A Laceration without foreign body of right middle finger without damage to nail, initial encounter (principal); W26.8XXA Contact with other sharp object(s), not elsewhere classified, initial encounter; I10 Essential (primary) hypertension; E11.9 Type 2 diabetes mellitus without complications; Z79.4 Long term (current) use of insulin; Z79.84 Long term (current) use of oral hypoglycemic drugs
CPT/HCPCS: 12001; 99282